=== PATIENT | female | born 1965 | race Caucasian/White ===

== ENCOUNTER 2018-01-22 13:13 | Day surgery (SDC) | payer OTHER ==
[~2018-01-22] VITALS: Ht 175.3 cm; Wt 108.1 kg
[~2018-01-22 13:13] MED LIST: ACET325T14 PO; BUPIVACAINE/PF 0.25% ONE; CYCL-259 PO; GABA400C PO
[2018-01-22] MEDS ORDERED: LACTATED RINGERS 1,000 ML IV SCH (13:43)
[2018-01-22] MEDS ORDERED: OxyconTIN ER 20 MG TAB.ER PO ONE (14:00)
[2018-01-22] MEDS ORDERED: ACETAMINOPHEN 500 MG TABLET PO ONE (14:00)
[2018-01-22] MEDS ORDERED: GABAPENTIN 300 MG CAPSULE PO ONE (14:00)
[2018-01-22] MEDS ORDERED: SCOPOLAMINE PATCH, 1.5MG PATCH.TD72 TD ONE (14:00)
[2018-01-22] MEDS ORDERED: ONDANSETRON ODT 8 MG PO ONE (14:00)
[2018-01-22 14:11] VITALS: BP 129/80
[2018-01-22] MEDS ORDERED: MIDAZOLAM 1 MG/ML, 2ML ONE (14:23)
[2018-01-22] MEDS ORDERED: FENTANYL PF 250 MCG/5ML ONE (14:23)
[2018-01-22] MEDS ORDERED: DEXAMETHASONE 4 MG/ML, 1ML ONE ×2 (14:24)
[2018-01-22] MEDS ORDERED: ROCURONIUM 10MG/ML,5ML ONE (14:24)
[2018-01-22] MEDS ORDERED: PROPOFOL 10 MG/ML, 20ML ONE (14:24)
[2018-01-22] MEDS ORDERED: GLYCOPYRROLATE 0.4 MG/2 ML, 2ML ONE (14:25)
[2018-01-22] MEDS ORDERED: NEOSTIGMINE 1 MG/ML, 10ML ONE (14:25)
[2018-01-22] MEDS ORDERED: CEFAZOLIN 1,000 MG ONE ×2 (14:26)
[2018-01-22] MEDS ORDERED: WATER-INJECTION,STERILE 10 ML IV ONE (14:26)
[2018-01-22] MEDS ORDERED: hydrALAzine 20 MG/ML, 1ML IV PRN (15:30)
[2018-01-22] MEDS ORDERED: PROMETHAZINE 25 MG/ML, 1ML IV PRN (15:30)
[2018-01-22] MEDS ORDERED: ONDANSETRON ODT 8 MG PO PRN (15:30)
[2018-01-22] MEDS ORDERED: PROMETHAZINE 12.5 MG SUPP PR PRN (15:30)
[2018-01-22] MEDS ORDERED: OXYcodone 5 MG/5 ML ORAL.SOL UDC PO PRN ×2 (15:30→17:00)
[2018-01-22] MEDS ORDERED: PROMETHAZINE 25 MG SUPP PR PRN (15:30)
[2018-01-22] MEDS ORDERED: MORPHINE SULFATE 4 MG/ML, 1ML IVPush PRN ×2 (15:30→17:00)
[2018-01-22] MEDS ORDERED: LABETALOL 5MG/ML, 20ML IV PRN (15:30)
[2018-01-22] MEDS ORDERED: BUPIVACAINE/PF-EPI 0.25% 1:200K IM ONE (15:45)
[2018-01-22] MEDS ORDERED: FENTANYL PF 100 MCG/2ML ONE ×3 (16:14→17:14)
[2018-01-22] MEDS ORDERED: GLYCOPYRROLATE 0.2MG/1ML, 5ML ONE (16:37)
[2018-01-22] MEDS ORDERED: MEPERIDINE/PF 50 MG/ML ONE (16:53)
[2018-01-22] MEDS: FENTANYL PF 100 MCG/2ML IV PRN ×2 (16:55→17:15)
[2018-01-22] MEDS: MEPERIDINE/PF 25MG/0.5ML IVPush PRN ×2 (16:56→17:11)
[2018-01-22] MEDS ORDERED: HYDROmorphone 2 MG/ML, 1ML ONE (17:14)
[2018-01-22] MEDS: HYDROmorphone 2 MG/ML, 1ML IV PRN ×2 (17:31→17:37)
[2018-01-22 18:34] VITALS: BP 119/77
[2018-01-22] MEDS ORDERED: OXYcodone IR 5MG TABLET PO PRN (19:20)
[2018-01-22] MEDS ORDERED: OXYcodone IR 5MG TABLET ONE (19:23)
== END 2018-01-22 22:10 | disposition home or self-care (01) ==
LOC: OUT 13:13 → 4NOR 17:56 → OUT 22:10
PROVIDERS: ATTEND Surgery
DX: K43.0 Incisional hernia with obstruction, without gangrene (principal); Z88.1 Allergy status to other antibiotic agents; Z98.890 Other specified postprocedural states; Z72.89 Other problems related to lifestyle
CPT/HCPCS: 49655; C1781; G0378; J0690; J1100; J1170; J2175; J2250; J2704; J2710; J3010; J3490; J7120; Q0162; S2900